=== PATIENT | female | born 1960 | race Caucasian/White ===

== ENCOUNTER → 2021-02-10 | Outpatient (CLI) | payer BC ==
--- NOTE | 2021-02-10 17:31 | RAD ---
Site ID: [id number] EXAMINATION: XR KNEE _3 VIEWS_LT. HISTORY: 60 years Female Reason: CHRONIC PAIN OF LEFT KNEE. COMPARISON: None. FINDINGS: No fracture, dislocation or radiopaque foreign body. The joint spaces and articular surfaces appea r unremarkable. Minimal spur formation at the tibial spine is seen. IMPRESSION: No acute process. Electronically signed by: Galen Osorio MD (02/10/2021 5:28 PM) [id number]
== END ==
LOC: RAD 15:46
PROVIDERS: ATTEND Family Medicine
DX: M77.8 Other enthesopathies, not elsewhere classified (principal)
CPT/HCPCS: 73562